=== PATIENT | male | born 1980 | race American Indian/Alaskan Native ===

== ENCOUNTER 2017-01-24 21:35 | Emergency (ER) | payer SELFPAY ==
[2017-01-24] MEDS ORDERED: TYLENOL PO ONE (22:27)
[2017-01-24] MEDS ORDERED: TYLENOL ONE (22:31)
[2017-01-24 23:01] LABS: Basophils % (Auto) 1.1 % (0.0-1.8); Eosinophils % (Auto) 0.7 % (0.0-4.3); Hematocrit 40.8 % (35.5-45.6); Hemoglobin 13.3 gm/dl (11.8-15.2); Mean Corpuscular HGB Conc 33 % (32-34); Mean Corpuscular Volume 75 fl (84-94); Platelet Count 150 K/mm3 (140-440); Red Blood Count 5.43 M/mm3 (3.65-5.03); Red Cell Distribution Width 14.4 % (13.2-15.2); White Blood Count 6.7 K/mm3 (4.5-11.0)
[2017-01-24 23:04] LABS: Mean Corpuscular Hemoglobin 25 pg (28-32)
[2017-01-24 23:19] LABS: Alanine Aminotransferase 26 units/L (7-56); Albumin 4.1 g/dL (3.9-5); Albumin/Globulin Ratio 1.2 %; Alkaline Phosphatase 43 units/L (35-129); Anion Gap 16 mmol/L; BUN/Creatinine Ratio 14; Blood Urea Nitrogen 14 mg/dL (9-20); Calcium 9.4 mg/dL (8.4-10.2); Carbon Dioxide 28 mmol/L (22-30); Chloride 98.6 mmol/L (98-107); Glucose 163 mg/dL (75-100); Lipase 97 units/L (13-60); Potassium 4.6 mmol/L (3.6-5.0); Sodium 138 mmol/L (137-145); Total Protein 7.4 g/dL (6.3-8.2)
[2017-01-24 23:20] LABS: Albumin 4.1 g/dL (3.9-5); Albumin/Globulin Ratio 1.2 %; Bilirubin,Direct 0.2 mg/dL (0-0.2); Bilirubin,Indirect 0.5 mg/dL; Bilirubin,Total 0.7 mg/dL (0.1-1.2); Total Protein 7.4 g/dL (6.3-8.2)
[2017-01-24 23:52] LABS: Bilirubin,Urine NEG (Negative); Blood,Urine SM (Negative); Ketones,Urine NEG (Negative); Leukocyte Esterase,Urine NEG (Negative); Mucus,Urine FEW /HPF; Nitrite,Urine NEG (Negative); Urobilinogen,Urine < 2.0 mg/dL (<2.0)
[2017-01-25 05:21] VITALS: BP 175/130
== END 2017-01-24 22:30 | disposition left against medical advice (07) ==
LOC: ED 21:35
DX: R10.30 Lower abdominal pain, unspecified (principal); Z53.21 Procedure and treatment not carried out due to patient leaving prior to being seen by health care provider
CPT/HCPCS: 36415; 80053; 80074; 81001; 83690; 85025

== ENCOUNTER 2018-01-30 05:30 | Inpatient (IN) | payer SELFPAY ==
[2018-01-30] MEDS ORDERED: ASPIRIN PO ONE ×2 (05:42→06:46)
--- NOTE | 2018-01-30 06:08 | XRay Report ---
FINAL REPORT PROCEDURE: XR CHEST ROUTINE 2V TECHNIQUE: A portable AP chest radiograph was obtained at 01/30/2018 05:55 (EST) . CPT 72679 HISTORY: SOB COMPARISON: No prior studies are available for comparison. FINDINGS: Heart: The heart is borderline enlarged. Mediastinum/Vessels: Normal. Lungs/Pleural space: Lungs are expanded. There are no infiltrates, effusions or pneumothoraces.. Bony thorax: No acute osseous abnormality. Life support devices: None. IMPRESSION: There is no acute cardiopulmonary abnormality..
[2018-01-30 06:13] LABS: Basophils % (Auto) 0.6 % (0.0-1.8); Eosinophils # (Auto) 0.1 K/mm3 (0.0-0.4); Eosinophils % (Auto) 0.8 % (0.0-4.3); Hematocrit 41.8 % (35.5-45.6); Hemoglobin 13.4 gm/dl (11.8-15.2); Lymphocytes # (Auto) 1.9 K/mm3 (1.2-5.4); Lymphocytes % (Auto) 27.7 % (13.4-35.0); Mean Corpuscular HGB Conc 32 % (32-34); Mean Corpuscular Volume 78 fl (84-94); Monocytes # (Auto) 0.5 K/mm3 (0.0-0.8); Monocytes % (Auto) 7.1 % (0.0-7.3); Platelet Count 160 K/mm3 (140-440); Red Blood Count 5.37 M/mm3 (3.65-5.03); Red Cell Distribution Width 14.4 % (13.2-15.2)
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
[2018-01-30 06:25] LABS: Mean Corpuscular Hemoglobin 25 pg (28-32)
[2018-01-30 06:30] LABS: BUN/Creatinine Ratio 8; Blood Urea Nitrogen 9 mg/dL (9-20); Calcium 9.4 mg/dL (8.4-10.2); Hemolysis Index 9
[2018-01-30] MEDS ORDERED: TYLENOL PO ONE (06:46)
[2018-01-30] MEDS ORDERED: CATAPRES PO ONE (06:46)
[2018-01-30] MEDS ORDERED: NORMODYNE PO ONE (09:00)
--- NOTE | 2018-01-30 12:49 | History and Physical Report ---
History of Present Illness Date of examination: 01/30/18 Date of admission: 01/30/18 Chief complaint: Chest pain. History of present illness: 37-year-old male with a history of CHF, hypertension and diabetes presents with the complaint of chest pain and associated dyspnea that began this morning at 2 AM. Patient states that the pain is on the left side of his chest and does not radiate to the arm or neck. Patient denies any nausea or vomiting. Patient denies any diaphoresis. However, he does report some associated shortness of breath. Patient states that the pain is squeezing and stabbing quality. Patient describes the pain as a 7 out of 10. Patient states that he has been noncompliant with his hypertension and diabetes medications. Patient states his last stress test was February 2017 and patient has no prior stent placement. Patient states he has no prior history of DVT or PE that he is aware of. No reports of cough and cold-like symptoms. No fever or chills. Past History Past Medical History: diabetes, hypertension, other (medical noncompliance) Past Surgical History: No surgical history Social history: no significant social history Family history: hypertension Medications and Allergies Allergies Allergy/AdvReac Type Severity Reaction Status Date / Time No Known Allergies Allergy Unverified 05/29/16 04:41 Home Medications Medication Instructions Recorded Confirmed Last Taken Type hydroCHLOROthiazide [HCTZ] 25 mg PO QDAY #30 tablet 06/02/16 01/30/18 Unknown Rx metFORMIN [Glucophage] 1,000 mg PO BIDDIAB #60 tablet 06/02/16 01/30/18 Unknown Rx Review of Systems All systems: negative Exam - Constitutional Vitals: Temp Pulse Resp BP Pulse Ox 98.2 F 77 23 181/94 99 01/30/18 06:51 01/30/18 12:16 01/30/18 12:16 01/30/18 12:16 01/30/18 10:45 General appearance: Present: no acute distress, well-nourished - EENT Eyes: Present: PERRL ENT: hearing intact, clear oral mucosa - Neck Neck: Present: supple, normal ROM - Respiratory Respiratory effort: normal Respiratory: bilateral: CTA - Cardiovascular Heart Sounds: Present: S1 & S2. Absent: rub, click - Extremities Extremities: pulses symmetrical, No edema Peripheral Pulses: within normal limits - Abdominal General gastrointestinal: Present: soft, non-tender, non-distended, normal bowel sounds Male genitourinary: Present: normal - Integumentary Integumentary: Present: clear, warm, dry - Musculoskeletal Musculoskeletal: gait normal, strength equal bilaterally - Psychiatric Psychiatric: appropriate mood/affect, intact judgment & insight - Neurologic Neurologic: CNII-XII intact, moves all extremities Results - Labs CBC & Chem 7: 01/30/18 05:46 01/30/18 05:46 Labs: Laboratory Last Values WBC 7.0 K/mm3 (4.5-11.0) 01/30/18 05:46 RBC 5.37 M/mm3 (3.65-5.03) H 01/30/18 05:46 Hgb 13.4 gm/dl (11.8-15.2) 01/30/18 05:46 Hct 41.8 % (35.5-45.6) 01/30/18 05:46 MCV 78 fl (84-94) L 01/30/18 05:46 MCH 25 pg (28-32) L 01/30/18 05:46 MCHC 32 % (32-34) 01/30/18 05:46 RDW 14.4 % (13.2-15.2) 01/30/18 05:46 Plt Count 160 K/mm3 (140-440) 01/30/18 05:46 Lymph % (Auto) 27.7 % (13.4-35.0) 01/30/18 05:46 [place] % (Auto) 7.1 % (0.0-7.3) 01/30/18 05:46 Eos % (Auto) 0.8 % (0.0-4.3) 01/30/18 05:46 Baso % (Auto) 0.6 % (0.0-1.8) 01/30/18 05:46 Lymph # 1.9 K/mm3 (1.2-5.4) 01/30/18 05:46 [place] # 0.5 K/mm3 (0.0-0.8) 01/30/18 05:46 Eos # 0.1 K/mm3 (0.0-0.4) 01/30/18 05:46 Baso # 0.0 K/mm3 (0.0-0.1) 01/30/18 05:46 Seg Neutrophils % 63.8 % (40.0-70.0) 01/30/18 05:46 Seg Neutrophils # 4.5 K/mm3 (1.8-7.7) 01/30/18 05:46 Sodium 141 mmol/L (137-145) 01/30/18 05:46 Potassium 3.7 mmol/L (3.6-5.0) 01/30/18 05:46 Chloride 100.2 mmol/L (98-107) 01/30/18 05:46 Carbon Dioxide 27 mmol/L (22-30) 01/30/18 05:46 Anion Gap 18 mmol/L 01/30/18 05:46 BUN 9 mg/dL (9-20) 01/30/18 05:46 Creatinine 1.1 mg/dL (0.8-1.5) 01/30/18 05:46 Estimated GFR > 60 ml/min 01/30/18 05:46 BUN/Creatinine Ratio 8 % 01/30/18 05:46 Glucose 178 mg/dL (75-100) H 01/30/18 05:46 Calcium 9.4 mg/dL (8.4-10.2) 01/30/18 05:46 Total Creatine Kinase 363 units/L (55-170) H 01/30/18 05:46 Troponin T < 0.010 ng/mL (0.00-0.029) 01/30/18 11:43 NT-Pro-B Natriuret Pep 960.5 pg/mL (0-450) H 01/30/18 05:46 Assessment and Plan Assessment and plan: Chest pain. Patient will be placed on chest pain pathway. We will follow-up with Jamil in a.m. Continue to trend cardiac isoenzymes and follow-up EKG. Accelerated hypertension. We will resume his hydrochlorothiazide. We will also add labetalol to his regimen. Hydralazine IV when necessary Diabetes mellitus type 2, uncontrolled. Patient will resume his metformin. Accu-Cheks and sliding scale insulin. Obesity. Patient will be counseled on weight loss. Medical noncompliance. Patient has been counseled on the importance of adherence to medications.
[2018-01-30] MEDS ORDERED: TYLENOL PO PRN (12:50)
[2018-01-30] MEDS ORDERED: ZOFRAN IV PRN (12:50)
[2018-01-30] MEDS ORDERED: D50W (25GM) Syringe IV PRN (12:50)
[2018-01-30] MEDS ORDERED: SODIUM CHLORIDE FLUSH SYRINGE 10 ML IV PRN ×2 (12:50)
[2018-01-30] MEDS ORDERED: APRESOLINE IV PRN (12:56)
[2018-01-30 13:25] LABS: Basophils # (Auto) 0.1 K/mm3 (0.0-0.1); Basophils % (Auto) 1.4 % (0.0-1.8); Eosinophils % (Auto) 0.6 % (0.0-4.3); Hematocrit 38.8 % (35.5-45.6); Hemoglobin 12.6 gm/dl (11.8-15.2); Lymphocytes # (Auto) 1.7 K/mm3 (1.2-5.4); Lymphocytes % (Auto) 26.2 % (13.4-35.0); Mean Corpuscular HGB Conc 32 % (32-34); Mean Corpuscular Volume 77 fl (84-94); Monocytes # (Auto) 0.6 K/mm3 (0.0-0.8); Monocytes % (Auto) 9.2 % (0.0-7.3); Platelet Count 153 K/mm3 (140-440); Red Blood Count 5.01 M/mm3 (3.65-5.03); Red Cell Distribution Width 14.3 % (13.2-15.2)
[2018-01-30 13:28] LABS: Mean Corpuscular Hemoglobin 25 pg (28-32)
[2018-01-30 14:09] LABS: BUN/Creatinine Ratio 8; Blood Urea Nitrogen 9 mg/dL (9-20); Calcium 8.7 mg/dL (8.4-10.2)
[2018-01-30 14:10] LABS: Hemolysis Index 7
[2018-01-30] MEDS: GLUCOPHAGE PO SCH (21:56)
[2018-01-30] MEDS: SODIUM CHLORIDE FLUSH SYRINGE 10 ML IV SCH (21:56)
[2018-01-30] MEDS: NORMODYNE PO SCH (21:56)
[2018-01-31 05:31] LABS: Basophils % (Auto) 0.5 % (0.0-1.8); Eosinophils % (Auto) 0.9 % (0.0-4.3); Hemoglobin 12.6 gm/dl (11.8-15.2); Lymphocytes # (Auto) 1.4 K/mm3 (1.2-5.4); Lymphocytes % (Auto) 25.3 % (13.4-35.0); Mean Corpuscular HGB Conc 32 % (32-34); Mean Corpuscular Volume 77 fl (84-94); Monocytes # (Auto) 0.5 K/mm3 (0.0-0.8); Monocytes % (Auto) 9.3 % (0.0-7.3); Platelet Count 156 K/mm3 (140-440); Red Blood Count 5.04 M/mm3 (3.65-5.03); Red Cell Distribution Width 14.4 % (13.2-15.2)
[2018-01-31 05:35] LABS: Mean Corpuscular Hemoglobin 25 pg (28-32)
[2018-01-31 05:58] LABS: BUN/Creatinine Ratio 14; Blood Urea Nitrogen 17 mg/dL (9-20); Calcium 9.3 mg/dL (8.4-10.2); Hemolysis Index 18
[2018-01-31] MEDS ORDERED: LEXISCAN IV ONE (08:17)
[2018-01-31] MEDS ORDERED: HCTZ PO SCH (10:00)
[2018-01-31] MEDS: NORMODYNE PO SCH ×3 (10:00→13:23)
--- NOTE | 2018-01-31 11:18 | Discharge Summary ---
Providers - Providers Date of Admission: 01/30/18 12:50 Date of discharge: 02/01/18 Attending physician: YIFAN MOON 01/30/18 Consult to Cardiac Rehabilitation [CONS] Routine Reason For Exam: Phase I 01/30/18 12:50 Consult to Physician [CONS] Routine Comment: Consulting Provider: ENRIQUE GONZALEZ Physician Instructions: Reason For Exam: cp Primary care physician: PROCUREMENT ASSISTANT Hospitalization Reason for admission: cp Condition: Stable Hospital course: 37-year-old male with a history of CHF, hypertension and diabetes who presented with the complaint of chest pain and associated dyspnea that began the morning prior to admission at 2 AM. Patient stated that the pain is on the left side of his chest and does not radiate to the arm or neck. Patient denied any nausea or vomiting. Patient denied any diaphoresis. However, he did report some associated shortness of breath. Patient stated that the pain is squeezing and stabbing quality. Patient states that he has been noncompliant with his hypertension and diabetes medications. Patient states his last stress test was February 2017 and patient has no prior stent placement. Patient states he has no prior history of DVT or PE. The patient was admitted with diagnosis of chest pain and accelerated hypertension. The patient underwent Doppler ultrasound of lower extremities that was found be negative. EKG had no acute ST -T wave changes. The patient was noted to have systolic blood pressure in the 180s on admission and was started on home medication of hydrochlorothiazide. Labetalol was added and increased to 400 mg twice a day with improvement in blood pressure. The patient underwent stress test and Echo. The patient was seen by Cardiology in consultation. The patient was also noted to have medical noncompliance and was counseled on the importance of adherence to medications and diet. Dedicated discharge time 32 minutes. Disposition: -01 TO HOME OR SELFCARE Time spent for discharge: 32 - Discharge Diagnoses (1) Accelerated hypertension Status: Acute (2) Chest pain Status: Acute (3) Hypertension Status: Acute Core Measure Documentation - Palliative Care Palliative Care/ Comfort Measures: Not Applicable - Core Measures Any of the following diagnoses?: none Exam - Constitutional Vitals: Temp Pulse Resp BP Pulse Ox 98.5 F 80 18 171/95 99 01/31/18 06:52 01/31/18 06:52 01/31/18 06:52 01/31/18 06:52 01/31/18 06:52 General appearance: Present: no acute distress, well-nourished - EENT Eyes: Present: PERRL ENT: hearing intact, clear oral mucosa - Neck Neck: Present: supple, normal ROM - Respiratory Respiratory effort: normal Respiratory: bilateral: CTA - Cardiovascular Heart Sounds: Present: S1 & S2. Absent: rub, click - Extremities Extremities: pulses symmetrical, No edema Peripheral Pulses: within normal limits - Abdominal General gastrointestinal: Present: soft, non-tender, non-distended, normal bowel sounds Male genitourinary: Present: normal - Integumentary Integumentary: Present: clear, warm, dry - Musculoskeletal Musculoskeletal: gait normal, strength equal bilaterally - Psychiatric Psychiatric: appropriate mood/affect, intact judgment & insight - Neurologic Neurologic: CNII-XII intact, moves all extremities Plan Activity: no restrictions Weight Bearing Status: Full Weight Bearing Diet: low fat, low cholesterol, low salt, diabetic Follow up with: PRIMARY CARE, [Primary Care Provider] - 3-5 Days Prescriptions: hydroCHLOROthiazide [HCTZ] 25 mg PO QDAY #30 tablet Labetalol [Normodyne TAB] 400 mg PO BID #60 tablet metFORMIN [Glucophage] 1,000 mg PO BIDDIAB #60 tablet
[2018-01-31] MEDS ORDERED: AFLURIA QUAD 2018-2019 SYRINGE IM ONE (12:00)
[2018-01-31] MEDS: GLUCOPHAGE PO SCH ×2 (12:26→17:29)
[2018-01-31] MEDS: LOVENOX SUB-Q SCH (12:29)
[2018-01-31] MEDS: SODIUM CHLORIDE FLUSH SYRINGE 10 ML IV SCH ×2 (12:30→21:27)
--- NOTE | 2018-01-31 13:25 | Consultation ---
History of Present Illness Consult date: 01/31/18 Consult reason: shortness of breath History of present illness: Patient is presenting for the evaluation of shortness of breath. Patient is overweight. He has a history of hypertension. A stress test done today revealed a dilated non-ischemic cardiomyopathy, LVEF 28%. Patient is not aware of any previous cardiac illness or history. He exercised for 3-4 min on the treadmill and had to stop because of dizziness and shortness of breath Past History Past Medical History: diabetes, hypertension, other (medical noncompliance) Past Surgical History: No surgical history Social history: no significant social history Family history: hypertension Medications and Allergies Allergies Allergy/AdvReac Type Severity Reaction Status Date / Time No Known Allergies Allergy Unverified 05/29/16 04:41 Home Medications Medication Instructions Recorded Confirmed Last Taken Type Labetalol [Normodyne TAB] 400 mg PO BID #60 tablet 01/31/18 Unknown Rx hydroCHLOROthiazide [HCTZ] 25 mg PO QDAY #30 tablet 01/31/18 Unknown Rx metFORMIN [Glucophage] 1,000 mg PO BIDDIAB #60 tablet 01/31/18 Unknown Rx Active Meds: Active Medications Acetaminophen (Tylenol) 650 mg PO Q4H PRN PRN Reason: Pain MILD(1-3)/Fever >100.5/SWAN Dextrose (D50w (25gm) Syringe) 50 ml IV PRN PRN PRN Reason: Hypoglycemia Enoxaparin Sodium (Lovenox) 40 mg SUB-Q QDAY [facility] Last Admin: 01/31/18 12:29 Dose: Not Given Hydralazine HCl (Apresoline) 20 mg IV Q6H PRN PRN Reason: HTN SBP>170 OR DBP>90 Last Admin: 01/31/18 00:26 Dose: 20 mg Hydrochlorothiazide (Hctz) 25 mg PO QDAY [facility] Last Admin: 01/31/18 12:26 Dose: 25 mg Labetalol HCl (Normodyne) 400 mg PO BID [facility] Last Admin: 01/31/18 12:25 Dose: 400 mg Metformin HCl (Glucophage) 1,000 mg PO BIDDIAB [facility] Last Admin: 01/31/18 12:26 Dose: 1,000 mg Ondansetron HCl (Zofran) 4 mg IV Q8H PRN PRN Reason: Nausea And Vomiting Sodium Chloride (Sodium Chloride Flush Syringe 10 Ml) 10 ml IV BID [facility] Last Admin: 01/31/18 12:30 Dose: 10 ml Sodium Chloride (Sodium Chloride Flush Syringe 10 Ml) 10 ml IV PRN PRN PRN Reason: LINE FLUSH Sodium Chloride (Sodium Chloride Flush Syringe 10 Ml) 10 ml IV PRN PRN PRN Reason: LINE FLUSH Review of Systems All systems: negative Physical Examination Vital Signs Temp Pulse Resp BP Pulse Ox 99.1 F 108 H 18 230/143 100 01/30/18 05:38 01/30/18 05:38 01/30/18 05:38 01/30/18 05:38 01/30/18 05:38 General appearance: no acute distress HEENT: Positive: PERRL Neck: Positive: neck supple Cardiac: Positive: Reg Rate and Rhythm Lungs: Positive: Decreased Breath Sounds Neuro: Positive: Grossly Intact Abdomen: Positive: Soft Extremities: Present: edema Results 01/31/18 04:41 01/31/18 04:41 CBC 01/30/18 01/31/18 Range/Units 13:13 04:41 WBC 6.5 5.5 (4.5-11.0) K/mm3 RBC 5.01 5.04 H (3.65-5.03) M/mm3 Hgb 12.6 12.6 (11.8-15.2) gm/dl Hct 38.8 39.0 (35.5-45.6) % Plt Count 153 156 (140-440) K/mm3 Lymph # 1.7 1.4 (1.2-5.4) K/mm3 [place] # 0.6 0.5 (0.0-0.8) K/mm3 Eos # 0.0 0.0 (0.0-0.4) K/mm3 Baso # 0.1 0.0 (0.0-0.1) K/mm3 Comprehensive Metabolic Panel 01/30/18 01/31/18 Range/Units 13:13 04:41 Sodium 136 L 142 (137-145) mmol/L Potassium 3.5 L 4.2 (3.6-5.0) mmol/L Chloride 96.9 L 101.9 (98-107) mmol/L Carbon Dioxide 26 29 (22-30) mmol/L BUN 9 17 (9-20) mg/dL Creatinine 1.2 1.2 (0.8-1.5) mg/dL Glucose 225 H 190 H (75-100) mg/dL Calcium 8.7 9.3 (8.4-10.2) mg/dL - EKG Interpretation EKG: sinus rhythm EKG interpretations - Telemetry EKG Rhythm: Sinus Rhythm Assessment and Plan Shortness of breath Dilated non-ischemic cardiomyopathy, LVEF 28% by MPI Systemic Hypertension Type II DM Obesity Obstructive sleep apnea Recommendations: Change labetalol to coreg Start lisinopril and aldactone Start po diuresis Obtain echocardiogram
--- NOTE | 2018-01-31 14:11 | Progress Note ---
Assessment and Plan Assessment and plan: Chest pain. Follow-up with Jamil, Dave and Echo. Cardiology consulted Accelerated hypertension. Cont. hydrochlorothiazide. Cont labetalol and increase to 400mg BID. Hydralazine IV when necessary Diabetes mellitus type 2, uncontrolled. Cont. metformin. Accu-Cheks and sliding scale insulin. Obesity. Patient will be counseled on weight loss. Medical noncompliance. Patient has been counseled on the importance of adherence to medications. - Patient Problems (1) Accelerated hypertension Current Visit: Yes Status: Acute (2) Chest pain Current Visit: Yes Status: Acute (3) Hypertension Current Visit: Yes Status: Acute History Interval history: No new issues overnight. Pt denies CP Hospitalist Physical - Constitutional Vitals: Temp Pulse Resp BP Pulse Ox 98.5 F 91 H 20 153/89 98 01/31/18 12:21 01/31/18 12:21 01/31/18 12:21 01/31/18 12:21 01/31/18 12:21 General appearance: Present: no acute distress, well-nourished - EENT Eyes: Present: PERRL, EOM intact ENT: hearing intact, clear oral mucosa, dentition normal - Neck Neck: Present: supple, normal ROM - Respiratory Respiratory effort: normal Respiratory: bilateral: CTA - Cardiovascular Rhythm: regular Heart Sounds: Present: S1 & S2. Absent: gallop, rub - Extremities Extremities: no ischemia, No edema, Full ROM - Abdominal General gastrointestinal: soft, non-tender, non-distended, normal bowel sounds - Integumentary Integumentary: Present: clear, warm, dry - Neurologic Neurologic: CNII-XII intact, moves all extremities Results - Labs CBC & Chem 7: 01/31/18 04:41 01/31/18 04:41 Labs: Laboratory Last Values WBC 5.5 K/mm3 (4.5-11.0) 01/31/18 04:41 RBC 5.04 M/mm3 (3.65-5.03) H 01/31/18 04:41 Hgb 12.6 gm/dl (11.8-15.2) 01/31/18 04:41 Hct 39.0 % (35.5-45.6) 01/31/18 04:41 MCV 77 fl (84-94) L 01/31/18 04:41 MCH 25 pg (28-32) L 01/31/18 04:41 MCHC 32 % (32-34) 01/31/18 04:41 RDW 14.4 % (13.2-15.2) 01/31/18 04:41 Plt Count 156 K/mm3 (140-440) 01/31/18 04:41 Lymph % (Auto) 25.3 % (13.4-35.0) 01/31/18 04:41 [place] % (Auto) 9.3 % (0.0-7.3) H 01/31/18 04:41 Eos % (Auto) 0.9 % (0.0-4.3) 01/31/18 04:41 Baso % (Auto) 0.5 % (0.0-1.8) 01/31/18 04:41 Lymph # 1.4 K/mm3 (1.2-5.4) 01/31/18 04:41 [place] # 0.5 K/mm3 (0.0-0.8) 01/31/18 04:41 Eos # 0.0 K/mm3 (0.0-0.4) 01/31/18 04:41 Baso # 0.0 K/mm3 (0.0-0.1) 01/31/18 04:41 Seg Neutrophils % 64.0 % (40.0-70.0) 01/31/18 04:41 Seg Neutrophils # 3.5 K/mm3 (1.8-7.7) 01/31/18 04:41 Sodium 142 mmol/L (137-145) 01/31/18 04:41 Potassium 4.2 mmol/L (3.6-5.0) 01/31/18 04:41 Chloride 101.9 mmol/L (98-107) 01/31/18 04:41 Carbon Dioxide 29 mmol/L (22-30) 01/31/18 04:41 Anion Gap 15 mmol/L 01/31/18 04:41 BUN 17 mg/dL (9-20) 01/31/18 04:41 Creatinine 1.2 mg/dL (0.8-1.5) 01/31/18 04:41 Estimated GFR > 60 ml/min 01/31/18 04:41 BUN/Creatinine Ratio 14 % 01/31/18 04:41 Glucose 190 mg/dL (75-100) H 01/31/18 04:41 POC Glucose 234 (70-105) H 01/31/18 12:22 Hemoglobin A1c 8.3 % (4-6) H 01/30/18 13:13 Calcium 9.3 mg/dL (8.4-10.2) 01/31/18 04:41 Total Creatine Kinase 363 units/L (55-170) H 01/30/18 05:46 Troponin T < 0.010 ng/mL (0.00-0.029) 01/30/18 11:43 NT-Pro-B Natriuret Pep 960.5 pg/mL (0-450) H 01/30/18 05:46
[2018-01-31] MEDS: ALDACTONE PO SCH (17:29)
[2018-01-31] MEDS: LASIX PO SCH (17:30)
[2018-01-31] MEDS: ZESTRIL PO SCH (17:30)
[2018-01-31] MEDS: COREG PO SCH (21:29)
--- NOTE | 2018-02-01 02:59 | Treadmill Report ---
INDICATION: Chest pain and shortness of breath. ORDERING PHYSICIAN: Dr. Jessica Carlson. FINDINGS: The left ventricular cavity is severely dilated. There is evidence of severe global left ventricular hypokinesis with an ejection fraction measured at 28%. There is no scintigraphic evidence of myocardial ischemia. The findings are consistent with nonischemic cardiomyopathy. IMPRESSION: 1. Evidence of nonischemic dilated cardiomyopathy. 2. Severely dilated left ventricular cavity with severe global left ventricular hypokinesia. 3. No scintigraphic evidence of myocardial ischemia. JOB# [id number] MARYJANE/ABDI
--- NOTE | 2018-02-01 09:28 | Progress Note ---
Assessment and Plan Dilated non-ischemic cardiomyopathy, LVEF 28% by MPI Systemic Hypertension Type II DM Obesity Obstructive sleep apnea Recommend: OK to diacharge from cardiac perspective Medical therapy for NICMP including beta jenny and ACEI F/U with Dr Caceres 1-2 weeks. Subjective Date of service: 02/01/18 Interval history: No cardiac complaints. Pt feels great. Objective Vital Signs Temp Pulse Pulse Resp BP BP Pulse Ox 02/01/18 06:21 98.6 F 76 18 165/85 98 01/31/18 23:59 77 19 99 01/31/18 23:45 78 19 150/91 01/31/18 23:24 99.3 F 78 19 150/91 95 01/31/18 21:29 77 163/82 01/31/18 17:27 98.4 F 79 20 151/90 99 01/31/18 12:21 98.5 F 91 H 20 153/89 98 - Physical Examination HEENT: Positive: PERRL Neck: Positive: neck supple Cardiac: Positive: Reg Rate and Rhythm Lungs: Positive: clear to auscultation Neuro: Positive: Grossly Intact Abdomen: Positive: Soft Extremities: Present: edema
[2018-02-01] MEDS: LOVENOX SUB-Q SCH (09:53)
[2018-02-01] MEDS: ALDACTONE PO SCH (09:55)
[2018-02-01] MEDS: GLUCOPHAGE PO SCH (09:55)
[2018-02-01] MEDS: COREG PO SCH (09:57)
[2018-02-01] MEDS: ZESTRIL PO SCH (09:57)
[2018-02-01] MEDS: LASIX PO SCH (09:57)
[2018-02-01] MEDS: SODIUM CHLORIDE FLUSH SYRINGE 10 ML IV SCH (09:57)
--- NOTE | 2018-02-01 11:04 | Discharge Summary ---
Providers - Providers Date of Admission: 01/30/18 12:50 Date of discharge: 02/01/18 Attending physician: YIFAN MOON 01/30/18 Consult to Cardiac Rehabilitation [CONS] Routine Reason For Exam: Phase I 01/30/18 12:50 Consult to Physician [CONS] Routine Comment: Consulting Provider: ENRIQUE GONZALEZ Physician Instructions: Reason For Exam: cp Primary care physician: SENIOR INVESTIGATOR Hospitalization Reason for admission: sob Condition: Stable Hospital course: 37-year-old male with a history of CHF, hypertension and diabetes who presented with the complaint of chest pain and associated dyspnea that began the morning prior to admission at 2 AM. Patient stated that the pain is on the left side of his chest and does not radiate to the arm or neck. Patient denied any nausea or vomiting. Patient denied any diaphoresis. However, he did report some associated shortness of breath. Patient stated that the pain is squeezing and stabbing quality. Patient states that he has been noncompliant with his hypertension and diabetes medications. Patient states his last stress test was February 2017 and patient has no prior stent placement. Patient states he has no prior history of DVT or PE. The patient was admitted with diagnosis of chest pain and accelerated hypertension. The patient underwent Doppler ultrasound of lower extremities that was found be negative. EKG had no acute ST -T wave changes. The patient was noted to have systolic blood pressure in the 180s on admission and was started on home medication of hydrochlorothiazide. Labetalol was added and increased to 400 mg twice a day with improvement in blood pressure. The patient underwent stress test and Echo. The patient was seen by Cardiology in consultation. The patient was also noted to have medical noncompliance and was counseled on the importance of adherence to medications and diet. After completed hospital workup, patient was noted to have diagnosis of acute systolic heart failure secondary to dilated nonischemic cardiomyopathy with left ventricular ejection fraction of 28% by MPI. Cardiology recommended medical therapy for in a CMP including beta jenny and NAEEM inhibitor. Patient will also receive Lasix and spironolactone for the systolic heart failure as well. Patient is to follow-up with cardiology in 1-2 weeks. Dedicated discharge time 32 minutes. Disposition: TO HOME OR SELFCARE - Discharge Diagnoses (1) Accelerated hypertension Status: Acute (2) Chest pain Status: Acute (3) Hypertension Status: Acute Core Measure Documentation - Palliative Care Palliative Care/ Comfort Measures: Not Applicable - Core Measures Any of the following diagnoses?: heart failure - Heart Failure Discharge Requirements NAEEM/ARB for LVSD if EF <40%: Yes Beta jenny at discharge: Yes Exam - Constitutional Vitals: Temp Pulse Resp BP Pulse Ox 98.6 F 76 18 165/85 98 02/01/18 06:21 02/01/18 09:57 02/01/18 06:21 02/01/18 09:57 02/01/18 06:21 General appearance: Present: no acute distress, well-nourished - EENT Eyes: Present: PERRL ENT: hearing intact, clear oral mucosa - Neck Neck: Present: supple, normal ROM - Respiratory Respiratory effort: normal Respiratory: bilateral: CTA - Cardiovascular Heart Sounds: Present: S1 & S2. Absent: rub, click - Extremities Extremities: pulses symmetrical, No edema Peripheral Pulses: within normal limits - Abdominal General gastrointestinal: Present: soft, non-tender, non-distended, normal bowel sounds Male genitourinary: Present: normal - Integumentary Integumentary: Present: clear, warm, dry - Musculoskeletal Musculoskeletal: gait normal, strength equal bilaterally - Psychiatric Psychiatric: appropriate mood/affect, intact judgment & insight - Neurologic Neurologic: CNII-XII intact, moves all extremities Plan Activity: no restrictions Weight Bearing Status: Full Weight Bearing Diet: low fat, low cholesterol, low salt Follow up with: PRIMARY CARE, [Primary Care Provider] - 3-5 Days EZ CASTREJON MD [Staff Physician] - 7 Days Prescriptions: Carvedilol [Coreg] 12.5 mg PO BID #60 tablet Furosemide [Lasix TAB] 40 mg PO QDAY #30 tablet Lisinopril [Zestril TAB] 20 mg PO QDAY #30 tablet metFORMIN [Glucophage] 1,000 mg PO BIDDIAB #60 tablet Spironolactone [Aldactone] 25 mg PO QDAY #30 tablet
[2018-02-01 13:22] VITALS: BP 146/82
== END 2018-02-01 17:00 | disposition home or self-care (01) | DRG 291 ==
LOC: ED 05:30 → 3A 12:50
PROVIDERS: ADMIT Hospitalist; ATTEND Hospitalist
DX: I11.0 Hypertensive heart disease with heart failure (principal); I50.21 Acute systolic (congestive) heart failure; Z68.42 Body mass index [BMI] 45.0-49.9, adult; I42.0 Dilated cardiomyopathy; E11.9 Type 2 diabetes mellitus without complications; E66.9 Obesity, unspecified; G47.33 Obstructive sleep apnea (adult) (pediatric); F17.200 Nicotine dependence, unspecified, uncomplicated; Z71.3 Dietary counseling and surveillance; Z79.899 Other long term (current) drug therapy; Z91.14 Patient's other noncompliance with medication regimen; Z82.49 Family history of ischemic heart disease and other diseases of the circulatory system; Z72.89 Other problems related to lifestyle
CPT/HCPCS: 36415; 71046; 78452; 80048; 82550; 82962; 83036; 83880; 84484; 85025; 90686; 93005; 93010; 93017; 93306; A9502; J0360; J1650; J2785

== ENCOUNTER 2018-10-08 01:22 | Emergency (ER) | payer OTHER ==
[2018-10-08] MEDS ORDERED: APRESOLINE IV ONE (01:48)
[2018-10-08] MEDS ORDERED: SOLU-Medrol IV ONE (01:48)
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
[2018-10-08 02:11] LABS: Basophils # (Auto) 0.1 K/mm3 (0.0-0.1); Basophils % (Auto) 0.9 % (0.0-1.8); Eosinophils # (Auto) 0.1 K/mm3 (0.0-0.4); Eosinophils % (Auto) 1.3 % (0.0-4.3); Hematocrit 41.6 % (35.5-45.6); Hemoglobin 13.3 gm/dl (11.8-15.2); Lymphocytes # (Auto) 1.6 K/mm3 (1.2-5.4); Lymphocytes % (Auto) 27.1 % (13.4-35.0); Mean Corpuscular HGB Conc 32 % (32-34); Mean Corpuscular Volume 77 fl (84-94); Monocytes # (Auto) 0.3 K/mm3 (0.0-0.8); Monocytes % (Auto) 4.8 % (0.0-7.3); Platelet Count 212 K/mm3 (140-440); Red Cell Distribution Width 14.3 % (13.2-15.2)
[2018-10-08 02:18] LABS: INR 1.08 (0.87-1.13)
[2018-10-08 02:19] LABS: Partial Thromboplastin Time 29.2 Sec. (24.2-36.6)
[2018-10-08 02:35] LABS: Alanine Aminotransferase 33 units/L (7-56); Albumin 4.1 g/dL (3.9-5); BUN/Creatinine Ratio 12; Blood Urea Nitrogen 13 mg/dL (9-20); Calcium 9.2 mg/dL (8.4-10.2); Hemolysis Index 6
[2018-10-08] MEDS ORDERED: LASIX IV ONE (02:44)
--- NOTE | 2018-10-08 02:54 | XRay Report ---
PROCEDURE: XR CHEST 1V AP TECHNIQUE: Chest radiograph single view. HISTORY: Dyspnea COMPARISONS: 01/30/2018 . FINDINGS: The cardiomediastinal silhouette appears normal. The lungs are clear. The bones and soft tissues are unremarkable. IMPRESSION: No evidence of acute cardiopulmonary disease. This document is electronically signed by Kiki Villarreal MD., October 08 2018 02:51:58 AM ET
[2018-10-08] MEDS ORDERED: NORMODYNE IV ONE ×2 (04:33→04:36)
[2018-10-08] MEDS ORDERED: DUONEB *Not for PRN Use IH ONE (04:44)
--- NOTE | 2018-10-08 05:29 | Cat Scan Report ---
PROCEDURE: CT ANGIO CHEST TECHNIQUE: Computerized tomographic angiography of the chest was performed after the IV injection of iodinated nonionic contrast including image processing. The image data was postprocessed using 2-di mensional multiplanar reformatted (MPR) and 3-dimensional (MIP and/or volume rendered) techniques. Au tomated exposure control, adjustment of mA and/or kV according to patient size, or iterative reconstr uction dose optimization techniques were utilized. HISTORY: SOB, elevated dimer COMPARISONS: Chest radiograph of the same date, CT 05/29/2016 . FINDINGS: Normal caliber main pulmonary artery. No central or large segmental pulmonary embolism. Suboptimal op acification of the more peripheral arterial tree compromised as more detailed evaluation for pulmonar y embolism. Streak artifact from contrast bolus within the SVC also limits right upper lung arterial branch evaluation. Thoracic aorta is normal in course and caliber. No periaortic fluid or stranding. Mild cardiomegaly. Coronary artery calcifications. No pneumothorax. Trace right pleural effusion. Patchy centrilobular groundglass nodularity in the rig ht upper and lower lobes. The central airways are patent. No bronchiectasis. Imaged portion of the upper abdomen is unremarkable. The superficial soft tissues are unremarkable. No acute bony abnormality or worrisome osseous lesions identified. IMPRESSION: No central pulmonary embolism. Infectious appearing subcentimeter nodularity in the right lung with t race effusion. No focal consolidative airspace disease. Mild cardiomegaly and coronary artery calcifications. This document is electronically signed by Hira Betancur MD., October 08 2018 05:27:23 AM ET
[2018-10-08 05:56] VITALS: BP 169/96
== END 2018-10-08 06:13 | disposition home or self-care (01) ==
LOC: ED 01:22
DX: R91.1 Solitary pulmonary nodule (principal); I11.0 Hypertensive heart disease with heart failure; I50.9 Heart failure, unspecified; I16.0 Hypertensive urgency; E11.9 Type 2 diabetes mellitus without complications; Z91.14 Patient's other noncompliance with medication regimen; Z87.891 Personal history of nicotine dependence
CPT/HCPCS: 36415; 71045; 71275; 80053; 83880; 84484; 85025; 85379; 85610; 85730; 93005; 93010; 94640; 96374; 96375; 99285; J0360; J1940; J2930; Q9967

== ENCOUNTER 2021-04-20 03:32 | Emergency (ER) | payer SELFPAY ==
[2021-04-20 03:35] VITALS: BP 153/87
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
[2021-04-20] MEDS ORDERED: oxyCODONE /ACETAMINOPHEN 5-325MG TAB PO ONE (07:13)
[2021-04-20] MEDS ORDERED: NEOMY 3.5 MG/BACIT 400 UNITS/POLY B 5000 UNITS/GM OINT PACKET TP ONE (07:13)
[2021-04-20] MEDS ORDERED: cephALEXin 500 MG CAP PO ONE (07:13)
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
[2021-04-20] MEDS ORDERED: SODIUM CHLORIDE 0.9% IRR 500 ML BOTTLE IR SCH (07:30)
== END 2021-04-20 08:52 | disposition home or self-care (01) ==
LOC: ED 03:32
DX: S48.9 Traumatic amputation of shoulder and upper arm, level unspecified (principal); Y04.0XXA Assault by unarmed brawl or fight, initial encounter; Z87.891 Personal history of nicotine dependence; X58.XXXA Exposure to other specified factors, initial encounter; Y93.89 Activity, other specified; Y92.89 Other specified places as the place of occurrence of the external cause; Y99.8 Other external cause status
CPT/HCPCS: 99282; 99283